=== PATIENT | male | born 1970 | race Two or more races ===

== ENCOUNTER 2020-01-17 21:01 | Emergency (ER) | payer SELFPAY ==
[~2020-01-17] VITALS: Ht 182.9 cm; Wt 77.0 kg
[2020-01-17 21:30] VITALS: BP 152/95
[2020-01-17 22:53] LABS: BASOPHILS % 0.4 % (0.0-2.0); EOSINOPHILS % 0.8 % (0.0-5.0); HEMATOCRIT. 46.1 % (42.0-52.0); HEMOGLOBIN. 15.4 g/dL (14.0-18.0); LYMPHOCYTES % 17.2 % (20.0-50.0); MEAN CORPUSCULAR HEMOGLOBIN 29.6 pg (28.0-32.0); MEAN CORPUSCULAR VOLUME 88.8 fL (80.0-94.0); MEAN PLATELET VOLUME 9.3 fl (7.4-10.4); MONOCYTES % 5.6 % (2.0-8.0); PLATELET 246 x1000/uL (130-400); RED BLOOD CELL COUNT 5.19 mill/uL (4.7-6.1); RED CELL DISTRIBUTION WIDTH 13.2 % (11.6-14.6)
[2020-01-17 22:58] LABS: CHLORIDE 107 mEq/L (98-107)
[2020-01-17 23:00] LABS: PROTHROMBIN TIME 10.8 sec (9.6-11.0)
[2020-01-17 23:04] LABS: CLARITY URINE CLEAR (CLEAR); COLOR URINE YELLOW (YELLOW); KETONES URINE NEGATIVE (NEGATIVE); LEUKOCYTE ESTERASE URINE NEGATIVE (NEGATIVE); NITRITE URINE NEGATIVE (NEGATIVE); OCCULT BLOOD URINE NEGATIVE (NEGATIVE); PROTEIN URINE NEGATIVE (NEGATIVE); SPECIFIC GRAVITY URINE 1.026 (1.005-1.030); UROBILINOGEN URINE 0.2 E.U./dL (0.2-1.0)
== END 2020-01-18 00:31 | disposition home or self-care (01) ==
LOC: ER 21:01
DX: J06.9 Acute upper respiratory infection, unspecified (principal); R10.32 Left lower quadrant pain; Z03.818 Encounter for observation for suspected exposure to other biological agents ruled out
CPT/HCPCS: 36415; 71045; 80053; 81003; 85025; 87635; 93005; 99285